=== PATIENT | female | born 1980 | race Caucasian/White ===

== ENCOUNTER 2024-04-30 11:56 | Observation (INO) | payer OTHER ==
[~2024-04-30] VITALS: Ht 160 cm; Wt 79.4 kg
[2024-04-30] MEDS ORDERED: ATOR80TA59 PO (12:15)
[2024-04-30] MEDS ORDERED: METO50TA7 PO (12:15)
[2024-04-30] MEDS ORDERED: ASPI-1 PO (12:15)
[2024-04-30 14:08] LABS: BASO % 0.2 % (0.0-1.0); EOS # 0.5 10^3/uL (0.0-0.5); EOS % 5.7 % (0.0-3.0); HEMATOCRIT 37.1 % (36.0-47.0); HEMOGLOBIN 10.8 g/dl (12.0-15.5); LYMPH # 2.3 10^3/uL (1.5-5.0); MEAN CORPUSCULAR HEMOGLOBIN 22.9 pg (27.0-33.0); MEAN CORPUSCULAR HGB CONC 29.1 g/dl (32.0-36.5); MEAN CORPUSCULAR VOLUME 78.6 fl (80.0-96.0); MONO # 0.7 10^3/uL (0.0-0.8); MONO % 8.7 % (2.0-8.0); NEUTROPHILS # 4.6 10^3/uL (1.5-8.5); PLATELET COUNT, AUTOMATED 196 10^3/uL (150-450); RED BLOOD COUNT 4.72 10^6/uL (4.00-5.40); WHITE BLOOD COUNT 8.1 10^3/uL (4.0-10.0)
[2024-04-30 14:21] LABS: INR 1.26; PARTIAL THROMBOPLASTIN TIME 29.5 SECONDS (24.8-34.2); PROTHROMBIN TIME 15.4 SECONDS (12.5-14.5)
[2024-04-30 14:24] LABS: ALBUMIN 2.9 G/DL (3.2-5.2); ALKALINE PHOSPHATASE 125 U/L (46-116); ALT/SGPT 39 U/L (7.0-40); AST/SGOT 29 U/L (<34); BILIRUBIN,DIRECT 0.2 MG/DL (<0.4); BILIRUBIN,TOTAL 0.3 MG/DL (0.3-1.2); BLOOD UREA NITROGEN 16 MG/DL (9-23); CALCIUM LEVEL 9.5 MG/DL (8.5-10.1); CARBON DIOXIDE LEVEL 31 MMOL/L (20-31); CHLORIDE LEVEL 103 MMOL/L (98-107); CK-MB VALUE MASS < 1.0 NG/ML (<3.6); CPK CREATINE PHOSPHOKINASE 58 U/L (34-145); CREATININE FOR GFR 0.71 MG/DL (0.55-1.30); GLOMERULAR FILTRATION RATE > 60.0 (>58); GLUCOSE, FASTING 170 MG/DL (60-100); MB/CK RELATIVE INDEX 1.72 (< OR =4); POTASSIUM SERUM 4.1 MMOL/L (3.5-5.1); SODIUM LEVEL 137 MMOL/L (136-145); TOTAL PROTEIN 7.1 G/DL (5.7-8.2)
[2024-04-30 14:38] LABS: C REACTIVE PROTEIN QUANTITATIV < 0.40 MG/DL (<1.0)
[2024-04-30 14:45] LABS: ERYTHROCYTE SEDIMENTATION RATE 78 mm/hr (0-20)
[2024-04-30] MEDS ORDERED: ISOVUE-370 76% 100ML VIAL As Ordered ONE (15:05)
[2024-04-30 16:06] LABS: CK-MB VALUE MASS < 1.0 NG/ML (<3.6)
[2024-04-30 16:08] LABS: CPK CREATINE PHOSPHOKINASE 51 U/L (34-145); MB/CK RELATIVE INDEX 1.96 (< OR =4)
[2024-04-30] MEDS ORDERED: GLUCOSE 4 GM CHEW PO PRN (19:20)
[2024-04-30] MEDS ORDERED: MAALOX 30 ML SUSP *UDC PO PRN (19:20)
[2024-04-30] MEDS ORDERED: ACETAMINOPHEN TAB 650MG DOSE (2X325MG) PO PRN (19:20)
[2024-04-30] MEDS ORDERED: GLUCAGON INJ 1MG VIAL SC PRN (19:20)
[2024-04-30] MEDS ORDERED: hydrOXYzine 50 MG TAB PO PRN (19:20)
[2024-04-30] MEDS ORDERED: ALBUTEROL 90 MCG/ACT 8GM HFA INHALER INH PRN (19:20)
[2024-04-30] MEDS ORDERED: MOM 30ML SUSPENSION UDC PO PRN (19:20)
[2024-04-30] MEDS ORDERED: DEXTROSE 50% 50ML SYRINGE IV PRN (19:20)
[2024-04-30] MEDS ORDERED: HYDR50TA70 PO (19:23)
[2024-04-30] MEDS ORDERED: BUPR1SUB5 SL (19:23)
[2024-04-30] MEDS ORDERED: FURO40TA2 PO (19:23)
[2024-04-30] MEDS ORDERED: METF10004 PO (19:23)
[2024-04-30] MEDS ORDERED: ALPR0.5T3 PO (19:23)
[2024-04-30] MEDS ORDERED: PARO40TA2 PO (19:23)
[2024-04-30] MEDS ORDERED: VARE1TAB2 PO (19:23)
[2024-04-30] MEDS ORDERED: INSUHUMDS SC (19:25)
[2024-04-30] MEDS ORDERED: LANTINJ4 SC (19:25)
[2024-04-30] MEDS ORDERED: TRUL10IN SC (19:25)
[2024-04-30] MEDS ORDERED: HOME MED LIST COMPLETE! XX SCH (19:30)
[2024-04-30 20:02] LABS: MAGNESIUM LEVEL 1.4 MG/DL (1.8-2.4); PHOSPHORUS LEVEL 4.5 MG/DL (2.5-4.9)
[2024-04-30 20:15] LABS: PROCALCITONIN 0.06 ng/ml
[2024-04-30 20:22] LABS: HEPATITIS B SURFACE ANTIGEN NEGATIVE (NEGATIVE)
[2024-04-30] MEDS: CLINDAMYCIN 600 MG in IV 1 EA IV ONE (20:28)
[2024-04-30] MEDS: FUROSEMIDE 40MG/4ML VIAL IV ONE (20:28)
[2024-04-30 20:38] LABS: VENOUS BASE EXCESS 1.4 (-2.0-2.0); VENOUS HCO3 28.4 MMOL/L (23.0-27.0); VENOUS O2 SATURATION 65.4 % (60.0-80.0); VENOUS PARTIAL PRESSURE CO2 55.6 mmHg (38.0-50.0); VENOUS PARTIAL PRESSURE O2 36.5 mmHg (30.0-50.0); VENOUS PH 7.326 UNITS (7.330-7.430); VENOUS TOTAL CO2 30.1 MMOL/L (24.0-28.0)
[2024-04-30 20:43] LABS: HEPATITIS B CORE ANTIBODY IGM NEGATIVE (NEGATIVE)
[2024-04-30] MEDS: MIRALAX *UNIT DOSE* 17GM PACKET PO SCH (21:00)
[2024-04-30] MEDS: INSULIN LISPRO (NovoLOG) PER UNIT SC SCH (21:00)
[2024-04-30 21:08] LABS: AMPHETAMINES LEVEL URINE NEGATIVE (NEGATIVE); BARBITURATES URINE NEGATIVE (NEGATIVE); CANNABINOIDS URINE NEGATIVE (NEGATIVE); COCAINE METABOLITE URINE NEGATIVE (NEGATIVE); METHADONE URINE NEGATIVE (NEGATIVE); OPIATES URINE NEGATIVE (NEGATIVE); PHENCYCLIDINE URINE NEGATIVE (NEGATIVE)
[2024-04-30 21:10] LABS: HEPATITIS C VIRUS ABY INDEX > 11.00 INDEX (<0.8)
[2024-04-30 21:12] LABS: BENZODIAZEPINES URINE POSITIVE (NEGATIVE)
[2024-04-30] MEDS: LEVEMIR (INSULIN DETEMIR) 1 UNITS/0.01ML SC SCH (21:30)
[2024-04-30] MEDS: ATORVASTATIN 20 MG TAB PO SCH (21:30)
[2024-04-30] MEDS: PARoxetine 20MG TABLET PO SCH (21:30)
[2024-04-30] MEDS: DOCUSATE SODIUM 100MG CAPSULE PO SCH (21:31)
[2024-04-30] MEDS: METOPROLOL TART 50 MG TAB PO SCH (21:32)
[2024-04-30] MEDS: ALPRAZolam 0.5 MG TAB PO SCH (21:33)
[2024-04-30] MEDS: COMBIVENT RESPIMAT 100-20MCG INHALER 4GM INH SCH (21:58)
[2024-04-30] MEDS ORDERED: BISACODYL 10MG SUPP PR PRN (22:05)
[2024-04-30] MEDS: BUPRENORPHINE/NALOXONE 8-2MG SUBLINGUAL TABLET(SUBOXONE) SL SCH (22:06)
[2024-04-30] MEDS: MAGNESIUM OXIDE 400MG TAB (MAG-OX) PO SCH (22:09)
[2024-04-30] MEDS: MAG SULF 1GM/100ML (MAG RUN) 1 GM in IV 1 EA IV ONE (22:11)
[2024-05-01] MEDS: CLINDAMYCIN 600 MG in IV 1 EA IV SCH ×2 (05:38→12:15)
[2024-05-01 06:02] LABS: HEMATOCRIT 34.8 % (36.0-47.0); HEMOGLOBIN 10.3 g/dl (12.0-15.5); MEAN CORPUSCULAR HEMOGLOBIN 23.1 pg (27.0-33.0); MEAN CORPUSCULAR HGB CONC 29.6 g/dl (32.0-36.5); PLATELET COUNT, AUTOMATED 195 10^3/uL (150-450); RED BLOOD COUNT 4.46 10^6/uL (4.00-5.40); WHITE BLOOD COUNT 7.2 10^3/uL (4.0-10.0)
[2024-05-01 06:34] LABS: ALBUMIN 2.7 G/DL (3.2-5.2); ALKALINE PHOSPHATASE 112 U/L (46-116); ALT/SGPT 35 U/L (7.0-40); AST/SGOT 39 U/L (<34); BILIRUBIN,TOTAL 0.3 MG/DL (0.3-1.2); BLOOD UREA NITROGEN 16 MG/DL (9-23); CALCIUM LEVEL 9.5 MG/DL (8.5-10.1); CARBON DIOXIDE LEVEL 30 MMOL/L (20-31); CHLORIDE LEVEL 106 MMOL/L (98-107); CHOLESTEROL LEVEL 68 MG/DL (<200); CHOLESTEROL RISK RATIO 3.79 (<5); CREATININE FOR GFR 0.75 MG/DL (0.55-1.30); GLOMERULAR FILTRATION RATE > 60.0 (>58); GLUCOSE, FASTING 263 MG/DL (60-100); HDL CHOLESTEROL 17.9 MG/DL (>40); LDL CHOLESTEROL 20.3 MG/DL (<100); MAGNESIUM LEVEL 1.7 MG/DL (1.8-2.4); NON-HDL-C 50.1 MG/DL; POTASSIUM SERUM 4.7 MMOL/L (3.5-5.1); SODIUM LEVEL 138 MMOL/L (136-145); TOTAL PROTEIN 6.9 G/DL (5.7-8.2); TRIGLYCERIDES LEVEL 149 MG/DL (<150)
[2024-05-01] MEDS: INSULIN LISPRO (NovoLOG) PER UNIT SC SCH ×2 (08:38→18:13)
[2024-05-01] MEDS: PANTOPRAZOLE 40MG TAB (PROTONIX) PO SCH (08:38)
[2024-05-01] MEDS: predniSONE 20 MG TAB PO SCH (08:38)
[2024-05-01] MEDS: NICOTINE 21MG/24HR 1 EA TRANSDERMAL TD SCH (08:39)
[2024-05-01] MEDS: FUROSEMIDE 40 MG TAB PO SCH (08:39)
[2024-05-01] MEDS: ENOXAPARIN 40MG/0.4ML SYRINGE (J1650 PER 10MG) SC SCH (08:39)
[2024-05-01] MEDS: VARENICLINE 1MG TABLET PO SCH (08:42)
[2024-05-01] MEDS ORDERED: BUPRENORPHINE/NALOXONE 8-2MG SUBLINGUAL TABLET(SUBOXONE) SL SCH (09:00)
[2024-05-01 10:37] VITALS: BP 112/59; TEMP 98.7; O2SAT 93
[2024-05-01 12:30] VITALS: BP 116/57; TEMP 97.1; O2SAT 96
[2024-05-01] MEDS: MAG SULF 1GM/100ML (MAG RUN) 1 GM in IV 1 EA IV ONE (14:13)
[2024-05-01] MEDS: CLINDAMYCIN 150MG CAPSULE PO SCH (16:25)
[2024-05-01] MEDS: INSULIN LISPRO (NovoLOG) PER UNIT SC STA ×2 (17:14→19:51)
[2024-05-01] MEDS: LEVEMIR (INSULIN DETEMIR) 1 UNITS/0.01ML SC ONE (17:25)
[2024-05-01 18:04] LABS: ACETONE/KETONE 0.15 MMOL/L (0.02-0.27)
[2024-05-01 18:09] LABS: BLOOD UREA NITROGEN 20 MG/DL (9-23); CALCIUM LEVEL 8.8 MG/DL (8.5-10.1); CARBON DIOXIDE LEVEL 27 MMOL/L (20-31); CHLORIDE LEVEL 102 MMOL/L (98-107); CREATININE FOR GFR 0.59 MG/DL (0.55-1.30); GLOMERULAR FILTRATION RATE > 60.0 (>58); GLUCOSE, FASTING 529 MG/DL (60-100); POTASSIUM SERUM 4.8 MMOL/L (3.5-5.1); SODIUM LEVEL 132 MMOL/L (136-145)
[2024-05-01 18:40] LABS: HEMOGLOBIN A1c 9.9 % (4.0-6.0)
[2024-05-01 21:00] VITALS: BP 124/63; TEMP 97.9; O2SAT 93
[2024-05-01] MEDS: LEVEMIR (INSULIN DETEMIR) 1 UNITS/0.01ML SC SCH (21:12)
[2024-05-02 00:39] LABS: BLOOD UREA NITROGEN 20 MG/DL (9-23); CARBON DIOXIDE LEVEL 30 MMOL/L (20-31); CHLORIDE LEVEL 104 MMOL/L (98-107); CREATININE FOR GFR 0.63 MG/DL (0.55-1.30); GLOMERULAR FILTRATION RATE > 60.0 (>58); GLUCOSE, FASTING 277 MG/DL (60-100); POTASSIUM SERUM 4.3 MMOL/L (3.5-5.1); SODIUM LEVEL 133 MMOL/L (136-145)
[2024-05-02 03:43] VITALS: BP 102/56; TEMP 97.5; O2SAT 92
[2024-05-02] MEDS: LEVEMIR (INSULIN DETEMIR) 1 UNITS/0.01ML SC ONE (08:42)
[2024-05-02] MEDS ORDERED: CLIN150C17 PO (08:43)
[2024-05-02] MEDS ORDERED: LANTINJ4 SC (08:45)
[2024-05-02 08:47] VITALS: BP 100/55
[2024-05-03 11:14] LABS: HCV RNA log10 7.02 Log IU/mL (NOT DETECTED)
== END 2024-05-02 13:35 | disposition home or self-care (01) ==
LOC: M ED 11:56 → M ED INP 11:57 → M MSPAV 05-01 15:05
PROVIDERS: ADMIT Family Medicine; ATTEND General Practice
DX: L03.115 Cellulitis of right lower limb (principal); R60.9 Edema, unspecified; E09.65 Drug or chemical induced diabetes mellitus with hyperglycemia; E11.65 Type 2 diabetes mellitus with hyperglycemia; F31.9 Bipolar disorder, unspecified; F90.9 Attention-deficit hyperactivity disorder, unspecified type; I25.10 Atherosclerotic heart disease of native coronary artery without angina pectoris; I25.2 Old myocardial infarction; I10 Essential (primary) hypertension; E78.5 Hyperlipidemia, unspecified; J44.9 Chronic obstructive pulmonary disease, unspecified; I50.9 Heart failure, unspecified; Z79.899 Other long term (current) drug therapy; Z79.891 Long term (current) use of opiate analgesic; Z79.82 Long term (current) use of aspirin; Z79.4 Long term (current) use of insulin; Z79.84 Long term (current) use of oral hypoglycemic drugs; Z88.8 Allergy status to other drugs, medicaments and biological substances; Z88.0 Allergy status to penicillin
CPT/HCPCS: 36415; 71045; 71046; 71275; 73552; 73590; 74018; 80048; 80053; 80061; 80074; 80076; 80307; 81001; 82010; 82550; 82553; 82803; 82947; 83036; 83605; 83735; 83880; 84100; 84145; 84484; 85025; 85027; 85610; 85652; 85730; 86140; 87040; 87070; 87077; 87205; 87486; 87522; 87581; 87633; 87798; 93005; 93041; 93306; 93971; 94640; 94760; 96361; 96365; 96366; 96372; 96375; 97161; 99285; J0737; J1650; J1815; J1940; J3475; J7512; Q9967